=== PATIENT | female | born 1985 | race Caucasian/White ===

== ENCOUNTER → 2018-09-18 | Outpatient (CLI) | payer OTHER ==
[~2018-09-18] MED LIST: ACYC200CA PO; B12-1CHW PO; IRON18TA PO; MAPA500T2 PO; PREN1TAB18 PO; TUMS500C PO; ZOFR4TAB16 PO; ZOVI5OIN8 TOP
== END ==
LOC: M SMT 14:12
PROVIDERS: ATTEND Specialist
DX: O36.0130 Maternal care for anti-D [Rh] antibodies, third trimester, not applicable or unspecified (principal)

== ENCOUNTER → 2018-10-10 | Outpatient (CLI) | payer OTHER ==
--- NOTE | 2018-10-10 15:00 | REP ---
OB ULTRASOUND: Real-time sonographic evaluation of the gravid uterus is performed. There is a single living intrauterine gestation. The estimated gestational age is 31 weeks 3 days, EDC 12/09/2018. Today's measurements indicate appropriate growth. BPD 82 mm = 33 weeks 0 days, at the 74th percentile. HC 290 mm = 32 weeks 0 days, at the 58th percentile. AC 263 mm = 30 weeks 3 days, at the 36th percentile. Femur length 59 mm = 30 weeks 6 days, at the 43rd percentile. HC/AC ratio 1.10 within normal range. Estimated weight 1669 grams, 34th percentile. Cervix is closed measures 3.9 cm in length. heart rate 153 beats per minute. Amniotic fluid within normal limits. NAEL 13.9 within normal range of 8.7 to 24.0. SD ratio 2.58 and RI 0.61 within normal range. SEEN/GROSSLY UNREMARKABLE Lateral ventricles Yes Posterior fossa Yes Upper lip Yes Four-chamber heart Yes LVOT Yes RVOT Yes Stomach Yes Cord insertion Yes Three vessel cord Yes Kidneys Yes Bladder Yes Spine No position: Vertex. Placenta: Anterior and grade 1 with no previa or abruption. Electronically Signed by Jose Juan Begum MD 10/10/2018 08:11 P
== END ==
LOC: M RAD 09:48
PROVIDERS: ATTEND Specialist
DX: O36.5993 Maternal care for other known or suspected poor fetal growth, unspecified trimester, fetus 3 (principal); Z3A.31 31 weeks gestation of pregnancy

== ENCOUNTER → 2018-10-15 | Outpatient (CLI) | payer OTHER | LOC: M LAB 12:53 | PROVIDERS: ATTEND Specialist | DX: Z36.89 Encounter for other specified antenatal screening (principal) | CPT/HCPCS: 36415; 86850; 86900; 86901; J2790 ==

== ENCOUNTER → 2018-10-19 | Outpatient (CLI) | payer OTHER ==
[2018-10-19 18:07] LABS: HEMATOCRIT 32.5 % (36.0-47.0); HEMOGLOBIN 9.6 g/dl (12.0-15.5); MEAN CORPUSCULAR HEMOGLOBIN 21.1 pg (27.0-33.0); MEAN CORPUSCULAR HGB CONC 29.5 g/dl (32.0-36.5); MEAN CORPUSCULAR VOLUME 71.3 fl (80.0-96.0); PLATELET COUNT, AUTOMATED 371 10^3/uL (150-450); RED BLOOD COUNT 4.56 10^6/uL (4.00-5.40); WHITE BLOOD COUNT 10.6 10^3/uL (4.0-10.0)
[2018-10-19 18:25] LABS: HEMOGLOBIN A1c 4.7 %
== END ==
LOC: M SMT 15:12
PROVIDERS: ATTEND Specialist
DX: O36.0130 Maternal care for anti-D [Rh] antibodies, third trimester, not applicable or unspecified (principal); Z3A.31 31 weeks gestation of pregnancy

== ENCOUNTER 2018-10-28 08:00 | Outpatient (CLI) | payer OTHER ==
[~2018-10-28] VITALS: Ht 167.6 cm; Wt 90.0 kg
[2018-10-28 08:20] VITALS: BP 120/70
--- NOTE | 2018-10-28 08:58 | NUR ---
L&D Triage Note S: 33yo @ 34w0d presents with c/o LOF that occurred late last night. Reports soaking through two pads. Has irregular contraction. Reports active movement. O: vss, AF cat 1 feal tracing with infrequent contractions gen: well appearing abd: soft, gravid, nttp cx: /-3 SS: neg nitrazine, neg ferning and pooling. TAUS: ceph, NAEL 16cm A/P: 33yo - neg workup for PPROM reassuring status -h/o 4 prior PTD, GBS collected -IHCP - stable Plan to start course of betamethasone 2nd to IHCP and h/o PTDs. Will discharge home after completing with PTL precautions and [facility] instructions. Alejandra Yin MD
[2018-10-28] MEDS ORDERED: BETAMETHASONE SOLUSPAN 6MG/ML INJ 5ML (J0702) IM SCH (09:00)
[2018-10-28] MEDS ORDERED: URSO300C3 PO (09:04)
[2018-10-28] MEDS ORDERED: RANI15TA PO (09:04)
== END 2018-10-28 10:09 | disposition home or self-care (01) ==
LOC: M LDO 08:00
PROVIDERS: ATTEND Obstetrics & Gynecology
DX: O47.03 False labor before 37 completed weeks of gestation, third trimester (principal); Z3A.34 34 weeks gestation of pregnancy
CPT/HCPCS: 59025; 76815; 87081; 96372; J0702

== ENCOUNTER 2018-10-29 08:26 | Outpatient (CLI) | payer OTHER ==
[~2018-10-29] VITALS: Ht 167.6 cm; Wt 89.3 kg
[~2018-10-29 08:26] MED LIST changes: +RANI15TA PO; +URSO300C3 PO
[2018-10-29 08:51] VITALS: BP 130/79
[2018-10-29] MEDS ORDERED: BETAMETHASONE SOLUSPAN 6MG/ML INJ 5ML (J0702) IM ONE (10:00)
--- NOTE | 2018-10-29 15:19 | IPNPDOC ---
Text Note Date of Service The patient was seen on 10/29/18. NOTE Patient is a 33-year-old female who is a who presents for her second dose of betamethasone injection. She is 34.1 weeks gestation with a history of A1GDM, intrahepatic cholestasis, anti-D antibody, and a history of gastric bypass with a history of an anastomosis leak during her last . She is receiving betamethasone because she will be induced at 36-37 weeks for cholest asis. NST is a Category I FHR. Patient discharged to home. VS,Fishbone, I+O VS, Fishbone, I+O Vital Signs Date Time Temp Pulse Resp B/P (MAP) Pulse Ox O2 Delivery O2 Flow Rate FiO2 10/29/18 08:51 99.0 108 18 130/79 (96) DOMINIC SALGADO CNM Oct 29, 2018 15:19
== END 2018-10-29 09:49 ==
LOC: M LDO 08:26
PROVIDERS: ATTEND Advanced Practice Midwife
DX: Z34.83 Encounter for supervision of other normal pregnancy, third trimester (principal)
CPT/HCPCS: 96372; J0702

== ENCOUNTER 2018-11-04 12:16 | Inpatient (IN) | payer OTHER ==
[~2018-11-04] VITALS: Ht 167.6 cm; Wt 90.0 kg
[2018-11-04 12:23] VITALS: BP 122/69
[2018-11-04] MEDS: ACETAMINOPHEN 500 MG TAB PO PRN (13:12)
--- NOTE | 2018-11-04 14:08 | HPE ---
DATE OF ADMISSION: 11/04/2018 A 33-year-old 8, para 1-4-2-5 female at 35-0/7 weeks gestation by 28-week ultrasound, estimated date of confinement (EDC) 12/09/2018, presents to triage after being transferred from [facility] with contractions every 3-4 minutes starting at midnight on the day of admission. Contractions were intense. She did not feel she would have time to drive herself down to [place]. She denies vaginal bleeding. There is good movement. At [facility], she was found to be 3-4 cm dilated, which is a change from her prior exam and the decision was made to transfer her to [place]. OBSTETRICAL HISTORY: 1. 2002: 34 weeks, vaginal delivery, 6 pound 9 ounce female . 2. 2003: 35 weeks, vaginal delivery, 7 pound 1 ounce female infant. 3. 2005: 33 weeks, vaginal delivery, 3 pound 5 ounce male infant. 4. 2007: 36 weeks, vaginal delivery, 7 pound 4 ounce female infant. 5. 2008: Termination of . 6. 2011: Termination of . 7. 2015: 38 weeks, vaginal delivery, 7 pound 12 ounce female . MEDICAL HISTORY: 1. Prolonged QT syndrome. 2. Anemia. 3. Anxiety. SURGICAL HISTORY: 1. Gastric bypass 2002. 2. Termination of times two. ALLERGIES: 1. REGLAN, which causes anxiety. 2. NONSTEROIDAL ANTI-INFLAMMATORY DRUGS (NSAIDS). SOCIAL HISTORY: The patient lives in [place]. She denies cigarettes, alcohol, or drug use. FAMILY HISTORY: Noncontributory. COURSE: Patient initiated care at approximately 28 weeks gestation on 09/12/2018. Her blood pressure was 120/74, weight 199. Patient has a history of gastric bypass. Patient complained of itching on her hands and on her feet and was subsequently diagnosed with cholestasis of . She was started on Ursodiol 500 mg twice a day. Patient was diagnosed with gestational diabetes, controlled by diet. Gestational diabetes with all her pregnancies. She was seen for contractions and administered steroids on 10/28/2018. PHYSICAL EXAMINATION: Blood pressure 124/74, pulse 84. She appears uncomfortable. Head and neck exam: Normal. Lungs: Clear. Heart: Regular rate and rhythm. Abdomen: Nontender, gravid. heart tones: Category 1. Contractions: Every 2-3 minutes, palpate is moderate. Sterile vagina Exam: 3-4 cm, 70%, -2, posterior, vertex. Extremities: Nontender. LABS: Blood type O negative, rubella immune, RPR nonreactive, hepatitis B and C negative, HIV negative, GBS negative 10/28/2018. ASSESSMENT: A 33-year-old 8, para 5 female at 35-0/7 weeks gestation, presents with contractions. PLAN: Patient will be admitted for observation on 11/04/2018. Plan IV fluids and will recheck cervix and see if she is making any further change. Do not plan tocolysis at this point in time since the patient has completed steroids.
[2018-11-05 09:52] VITALS: BP 113/76
--- NOTE | 2018-11-05 12:22 | IPNPDOC ---
Text Note Date of Service The patient was seen on 11/05/18. NOTE Subjective: Patient reports she feels pressure. Objective: No change in cervical exam per Dr. Jeong. VS: see below. FHR: 125, moderate variability, positive accelerations, no decelerations. Contractions: none noted. Assessment: IUP at 35.1 weeks gestation; cholestasis, Category I FHR tracing. Plan: Dr. Jeong in to discuss plan of care. Reviewed given patient is 4 cm and her history of labor along with the distance she is away from the hospital we recommend she stay at the hospital until she delivers or until 36 weeks when she will be induced for cholestasis. Patient and agree with plan. She will continue with monitoring once daily and she is to report any changes. Patient will be moved to for care. VS,Fishbone, I+O VS, Fishbone, I+O Vital Signs Date Time Temp Pulse Resp B/P (MAP) Pulse Ox O2 Delivery O2 Flow Rate FiO2 11/05/18 09:52 96.7 122 18 113/76 (88) DOMINIC SALGADO CNM Nov 05, 2018 12:22
[2018-11-05 15:22] VITALS: BP 117/67
[2018-11-05 18:00] VITALS: BP 125/76
[2018-11-06 05:37] VITALS: BP 110/61
[2018-11-06] MEDS: PRENATAL VITAMINS CHEWABLE TABLET PO SCH (08:35)
[2018-11-06] MEDS ORDERED: ADACEL/BOOSTRIX VACCINE (DIPHTH/PERTUSS/ACELL/TETANUS)0.5ML SYR (90715) IM ONE (10:15)
--- NOTE | 2018-11-06 11:01 | NUR ---
HD#3 S: Doing well. Reports increase pelvic pressure with occasional contractions. Reports active movement. No vaginal bleeding or LOF. O: vss,af gen: well appearing abd: gravid, nttp cx: deferred A/P: 33yo with advance dilation- currently stable with no s/s of labor progression -expectant management and BID NST -IHCP - stable. has completed betamethasone and plan to proceed with delivery at 36weeks. Alejandra Yin MD
[2018-11-06 18:00] VITALS: BP 134/66
[2018-11-07 06:37] VITALS: BP 109/56
[2018-11-07] MEDS ORDERED: HYDROCORTISONE 1% CREAM 30 GM TOP ONE (08:00)
--- NOTE | 2018-11-07 08:00 | NUR ---
Progress note S: c/o pressure, some contractions O: TX=100/56 Afebrile NAD Abd: NT, gravid FHT: Cat. I SVE: 4 cm/70%/-2 posterior vtx A/P 33 yo at 35 3/7 weeks, cholestasis, contractions Continue in hospital bedrest Ursodiol 600 mg BID No plan to stop labor BMZ complete Fabian Jeong MD
[2018-11-07] MEDS: PRENATAL VITAMINS CHEWABLE TABLET PO SCH (11:03)
[2018-11-07] MEDS: URSODIOL 300 MG CAP PO SCH ×2 (11:03→21:37)
[2018-11-07 18:00] VITALS: BP 119/71
[2018-11-07 22:05] VITALS: BP 120/58
[2018-11-08 06:41] VITALS: BP 100/52
[2018-11-08] MEDS: PRENATAL VITAMINS CHEWABLE TABLET PO SCH (09:06)
[2018-11-08] MEDS: ACETAMINOPHEN 500 MG TAB PO PRN (09:07)
[2018-11-08] MEDS: URSODIOL 300 MG CAP PO SCH ×2 (09:09→20:04)
[2018-11-08 14:00] VITALS: BP 119/70
[2018-11-08 18:08] VITALS: BP 119/75
[2018-11-08] MEDS ORDERED: HYDROCORTISONE 1% CREAM 30 GM TOP ONE (21:00)
[2018-11-08 22:00] VITALS: BP 107/56
[2018-11-09 06:00] VITALS: BP 103/63
--- NOTE | 2018-11-09 07:34 | NUR ---
Progress note S: No contractions, feels pressure O: NO=719/63 AF NAD Abd: NT, gravid FHT: cat. I toco: irregular A/P 33 yo at 35 5/7 weeks with advanced dilation, cholestasis of Plan induction on 11/11 at 36 0/7 weeks gestation with indication of cholestasis of Continue in hospital bedrest On Ursodiol 500 mg BID Fabian Jeong MD
[2018-11-09] MEDS: PRENATAL VITAMINS CHEWABLE TABLET PO SCH (09:48)
[2018-11-09] MEDS: URSODIOL 300 MG CAP PO SCH ×2 (09:49→21:24)
[2018-11-09 18:00] VITALS: BP 115/71
[2018-11-09 22:01] VITALS: BP 127/83
[2018-11-10 05:30] VITALS: BP 101/56
--- NOTE | 2018-11-10 07:03 | IPNPDOC ---
Text Note Date of Service The patient was seen on 11/10/18. NOTE Progress Sleeping, no UC VSS, afebrile normotensive Cat I tracing Comfortable Cholestasis @ 35 / Continue ursodial BID dosing. Consider IOL @ 36 wks for cholestasis of VS,Fishbone, I+O VS, Fishbone, I+O Vital Signs Date Time Temp Pulse Resp B/P (MAP) Pulse Ox O2 Delivery O2 Flow Rate FiO2 11/10/18 05:30 98.0 86 18 101/56 (71) 11/09/18 06:00 97 Joleen Mondragon CNM Nov 10, 2018 07:03
[2018-11-10] MEDS: URSODIOL 300 MG CAP PO SCH ×2 (09:34→21:18)
[2018-11-10] MEDS: PRENATAL VITAMINS CHEWABLE TABLET PO SCH (09:35)
[2018-11-10 14:00] VITALS: BP 119/64
[2018-11-10 22:12] VITALS: BP 122/62
[2018-11-11] VITALS (51 sets, daily range): BP systolic 84–131; BP diastolic 47–71
[2018-11-11 06:31] LABS: HEMATOCRIT 30.8 % (36.0-47.0); HEMOGLOBIN 8.8 g/dl (12.0-15.5); MEAN CORPUSCULAR HEMOGLOBIN 20.7 pg (27.0-33.0); MEAN CORPUSCULAR HGB CONC 28.6 g/dl (32.0-36.5); MEAN CORPUSCULAR VOLUME 72.3 fl (80.0-96.0); PLATELET COUNT, AUTOMATED 313 10^3/uL (150-450); RED BLOOD COUNT 4.26 10^6/uL (4.00-5.40); WHITE BLOOD COUNT 8.1 10^3/uL (4.0-10.0)
[2018-11-11] MEDS ORDERED: LR 1,000 ML IV SCH (07:26)
[2018-11-11] MEDS ORDERED: OXYTOCIN DRIP 30 UNITS in APPROPRIATE DILUENT 1 EA IV SCH (07:30)
--- NOTE | 2018-11-11 08:02 | NUR ---
Progress note S: c/o pelvic pressure, c/o general itching O: AI=284/65 P=84 AF NAD Abd: NT, gravid FHT: Cat. I SVE: 4 cm/70%/-1 vtx, soft toco: none A/P 33 yo at 36 0/7 weeks, hospital day#7, induction today for cholestasis Start with Oxytocin Labs drawn this morning GBS negative, no antibiotics needed. Fabian Jeong MD
[2018-11-11] MEDS: PRENATAL VITAMINS CHEWABLE TABLET PO SCH (08:54)
[2018-11-11] MEDS: URSODIOL 300 MG CAP PO SCH (08:54)
[2018-11-11] MEDS ORDERED: FENTANYL 2MCG/ML ROPIVACAINE 0.2% IN 0.9% NACL 100ML IVBAG As Ordered ONE (09:42)
[2018-11-11] MEDS ORDERED: LR 800 ML IV ONE (09:45)
[2018-11-11] MEDS ORDERED: FENTANYL/ROPIVACAINE/NACL BAG 100 ML EPIDURAL SCH (11:30)
[2018-11-11] MEDS ORDERED: ONDANSETRON 4MG/2ML VIAL (J2405) IV PRN ×2 (11:30→15:00)
[2018-11-11] MEDS ORDERED: REFRIGERATOR IV KEYS XX PRN (11:30)
[2018-11-11] MEDS ORDERED: LACTATED RINGER'S 1000 ML IV PRN (11:30)
[2018-11-11] MEDS ORDERED: EPIDURAL/PCA KEYS XX PRN (11:30)
[2018-11-11] MEDS ORDERED: diphenhydrAMINE INJ 50MG/ML VIAL (J1200) IV PRN (11:30)
[2018-11-11] MEDS ORDERED: EPIDURAL COMMENT XX SCH (11:30)
[2018-11-11] MEDS ORDERED: NALOXONE INJ 0.4 MG/1 ML VIAL (J2310) IV PRN (11:30)
[2018-11-11] MEDS: ePHEDrine SULFATE 25 MG/5 ML(5MG/ML) SYRINGE IV PRN ×3 (11:47→11:55)
[2018-11-11] MEDS ORDERED: RHOGAM 300 MCG (1500 IU) INJ (J2790) IM SCH (15:00)
[2018-11-11] MEDS ORDERED: DOCUSATE SODIUM 100 MG CAP PO PRN (15:00)
[2018-11-11] MEDS ORDERED: DIBUCAINE 1% OINTMENT 30GM TOP PRN (15:00)
[2018-11-11] MEDS ORDERED: MEASLES,MUMPS,RUBELLA VACCINE INJ (MMR-II) (90707) SC SCH (15:00)
[2018-11-11] MEDS ORDERED: OXYTOCIN DRIP 30 UNITS in APPROPRIATE DILUENT 1 EA IV ONE (15:00)
[2018-11-11] MEDS ORDERED: METHYLERGONOVINE MALEATE 0.2 MG TAB PO PRN (15:00)
[2018-11-11] MEDS: ACETAMINOPHEN 500 MG TAB PO PRN ×2 (17:39→23:32)
[2018-11-12] MEDS: ACETAMINOPHEN 500 MG TAB PO PRN ×2 (05:32→13:50)
[2018-11-12 06:00] VITALS: BP 117/61
[2018-11-12] MEDS: PRENATAL VITAMINS CHEWABLE TABLET PO SCH (08:27)
--- NOTE | 2018-11-12 10:07 | DN ---
DATE: 11/11/2018 PREDELIVERY DIAGNOSIS: 36 0/7 weeks gestation: Advanced cervical dilation POST-DELIVERY DIAGNOSIS: Delivered. PROCEDURE: Spontaneous vaginal delivery. CAP SEWER: Dr. Fabian Jeong. ANESTHESIA: Epidural. ESTIMATED BLOOD LOSS: 300 mL. FINDINGS: 5 pound 9 ounce female infant, scores 8 and 9. DELIVERY SUMMARY: After a short second phase consisting of 1 contraction the patient had spontaneously delivery of a 5 pound 9 ounce female infant. 8 and 9 under epidural anesthesia. The cried immediately and was handed to the mother. The cord was doubly clamped and cut. Placenta delivered spontaneously and appeared to be intact. The patient received intravenous (IV) Pitocin after delivery of the placenta. There are no vaginal lacerations present. Sponge counts were correct.
[2018-11-12] MEDS: KETOROLAC 30 MG/ML VIAL (J1885) IV SCH ×2 (11:18→20:10)
[2018-11-12 18:00] VITALS: BP 113/68
[2018-11-13] MEDS: KETOROLAC 30 MG/ML VIAL (J1885) IV SCH (04:58)
[2018-11-13 05:42] VITALS: BP 112/69
[2018-11-13] MEDS: PRENATAL VITAMINS CHEWABLE TABLET PO SCH (08:32)
== END 2018-11-13 11:45 | disposition home or self-care (01) | DRG 560 ==
LOC: M LDI 12:16 → OBSVTOIN 11-05 10:53 → M OBS 11-05 15:11 → M LDI 11-11 05:55 → M OBS 11-11 17:06
PROVIDERS: ADMIT Specialist; ATTEND Specialist
PROC: 10E0XZZ Delivery of Products of Conception, External Approach (ICD-10-PCS; principal; 2018-11-11)
DX: O60.14X0 Preterm labor third trimester with preterm delivery third trimester, not applicable or unspecified (principal); K83.1 Obstruction of bile duct; O24.420 Gestational diabetes mellitus in childbirth, diet controlled; O26.62 Liver and biliary tract disorders in childbirth; Z3A.35 35 weeks gestation of pregnancy; O99.844 Bariatric surgery status complicating childbirth; Z37.0 Single live birth

== ENCOUNTER 2019-04-02 06:05 | Day surgery (SDC) | payer OTHER ==
[~2019-04-02] VITALS: Ht 167.6 cm; Wt 81.6 kg
[~2019-04-02 06:05] MED LIST changes: +ACYC1CAP20 PO; -ACYC200CA PO; +LR 1,000 ML IV ONE; +TRI-TAB16 PO
[2019-04-02] MEDS ORDERED: BUPIVACAINE HCL 0.25% 30 ML VIAL As Ordered ONE (06:33)
[2019-04-02 06:39] LABS: HEMATOCRIT 34.1 % (36.0-47.0); HEMOGLOBIN 9.8 g/dl (12.0-15.5); MEAN CORPUSCULAR HEMOGLOBIN 20.2 pg (27.0-33.0); MEAN CORPUSCULAR HGB CONC 28.7 g/dl (32.0-36.5); MEAN CORPUSCULAR VOLUME 70.3 fl (80.0-96.0); PLATELET COUNT, AUTOMATED 445 10^3/uL (150-450); RED BLOOD COUNT 4.85 10^6/uL (4.00-5.40)
[2019-04-02] MEDS ORDERED: ONDANSETRON 4MG/2ML VIAL (J2405) As Ordered ONE (07:02)
[2019-04-02] MEDS ORDERED: PROPOFOL 200 MG/20 ML VIAL As Ordered ONE (07:02)
[2019-04-02] MEDS ORDERED: LIDOCAINE 2% INJ 100 MG/5 ML SDV (FOR ANES.) As Ordered ONE (07:02)
[2019-04-02] MEDS ORDERED: ROCURONIUM BROMIDE 50 MG/5 ML VIAL As Ordered ONE (07:02)
[2019-04-02] MEDS ORDERED: dexameTHASONE 4 MG/ML 1ML VIAL (J1100) As Ordered ONE (07:02)
[2019-04-02] MEDS ORDERED: KETOROLAC 60 MG/2 ML VIAL (J1885) As Ordered ONE (07:02)
[2019-04-02] MEDS ORDERED: fentaNYL 250 MCG/5 ML INJECTION (J3010) As Ordered ONE (07:04)
[2019-04-02] MEDS ORDERED: MIDAZOLAM INJ 2 MG/2 ML VIAL (J2250) As Ordered ONE (07:05)
[2019-04-02 07:07] LABS: URINE PREG TEST NEGATIVE (NEGATIVE)
[2019-04-02] MEDS ORDERED: SCOPOLAMINE 1MG TRANSDERMAL PATCH As Ordered ONE (07:23)
[2019-04-02] MEDS ORDERED: SCOPOLAMINE 1MG TRANSDERMAL PATCH TOP ONE (07:45)
[2019-04-02] MEDS ORDERED: ACETAMINOPHEN 1000MG 100ML IV BTL (OFIRMEV) (J0131 PER 10MG) As Ordered ONE (08:00)
[2019-04-02] MEDS ORDERED: SUGAMMADEX SODIUM 500 MG/5 ML VIAL (BRIDION) As Ordered ONE (08:09)
[2019-04-02] MEDS ORDERED: PERCOCET 5MG/325MG TAB PO PRN (08:45)
[2019-04-02] MEDS ORDERED: ONDANSETRON 4MG/2ML VIAL (J2405) IV PRN (08:45)
[2019-04-02] MEDS ORDERED: LR 1,000 ML IV SCH ×2 (08:45→09:46)
[2019-04-02] MEDS: MEPERIDINE INJ 25 MG/ML VIAL (J2175) IV PRN ×2 (09:00→09:05)
[2019-04-02] MEDS: fentaNYL 100 MCG/2 ML INJECTION (J3010) IV PRN ×2 (09:00→09:05)
[2019-04-02] MEDS ORDERED: OXYC1TAB23 PO (09:41)
[2019-04-02] MEDS ORDERED: oxyCODONE 5MG TAB PO PRN (09:46)
[2019-04-02 10:47] VITALS: BP 113/64
--- NOTE | 2019-04-16 23:56 | RO ---
DATE OF PROCEDURE: 04/02/2019 PREPROCEDURE DIAGNOSIS: Undesired fertility. POSTPROCEDURE DIAGNOSIS: Undesired fertility. PROCEDURE: Laparoscopic bilateral salpingectomy. SURGEON: Fabian Jeong MD SHANK FAKER: ANESTHESIA: General endotracheal. ESTIMATED BLOOD LOSS: Minimal. FINDINGS: Normal uterus, fallopian tube and ovaries. Upper abdomen with evidence of prior surgery, including gastric bypass surgery with adhesions to the anterior abdominal wall. The area around the umbilicus and lower half of the abdomen was completely free of adhesions. DESCRIPTION OF PROCEDURE: The patient was taken to the operating room where general endotracheal anesthesia was induced. She was prepped and draped in a sterile fashion in the dorsal lithotomy position. The bladder was emptied with a catheter. A Pigafe tenaculum was placed as a manipulator. A periumbilical incision was made with a scalpel. A Veress needle was placed through this incision while tenting up on the skin of the abdomen. Intraabdominal location of the Veress needle was assessed by use of a saline-filled syringe. A pneumoperitoneum was created. The Veress needle was removed. 5 mm trocar using Visiport was inserted through this incision, 5 and 8 mm suprapubic ports were placed under direct visualization. Attention was turned to the fallopian tubes. The fimbriated end of the tubes were grasped with a grasping instrument, a LigaSure device used to coagulate and incise broad ligament attachments to the tubes. The tubes were then excised near their origin. Both tubes were removed through the suprapubic ports. The pneumoperitoneum was released. All instruments were removed. Sponge, instrument and needle counts were correct. The patient went to the recovery room in stable condition.
== END 2019-04-02 10:59 | disposition home or self-care (01) ==
LOC: M SDC 06:05
PROVIDERS: ATTEND Specialist
DX: Z30.2 Encounter for sterilization (principal); K21.9 Gastro-esophageal reflux disease without esophagitis; F31.9 Bipolar disorder, unspecified; F32.9 Major depressive disorder, single episode, unspecified; E66.9 Obesity, unspecified; R94.31 Abnormal electrocardiogram [ECG] [EKG]; Z88.8 Allergy status to other drugs, medicaments and biological substances; Z91.013 Allergy to seafood; Z79.3 Long term (current) use of hormonal contraceptives; Z98.84 Bariatric surgery status
CPT/HCPCS: 36415; 58661; 84703; 85027; 88302; J0131; J1100; J2175; J2250; J2405; J3010

== ENCOUNTER → 2022-02-16 | Outpatient (CLI) | payer MEDICAID ==
[~2022-02-16] MED LIST changes: -LR 1,000 ML IV ONE; +OXYC1TAB23 PO
[2022-02-16 15:33] LABS: APPEARANCE, URINE CLOUDY (CLEAR); BACTERIA, URINE AUTO NEGATIVE (NEGATIVE); BILIRUBIN, URINE AUTO NEGATIVE (NEGATIVE); BLOOD, URINE BLOOD NEGATIVE (NEGATIVE); COLOR, URINE YELLOW (YELLOW); GLUCOSE, URINE (UA) AUTO NEGATIVE (NEGATIVE); KETONE, URINE AUTO NEGATIVE (NEGATIVE); LEUKOCYTE ESTERASE, URINE AUTO 3+ (NEGATIVE); MUCUS, URINE SMALL (NEGATIVE); NITRITE, URINE AUTO NEGATIVE (NEGATIVE); PROTEIN, URINE AUTO NEGATIVE (NEGATIVE); RBC, URINE AUTO 1 /HPF (0-3); SPECIFIC GRAVITY URINE AUTO 1.014 (1.002-1.035); SQUAMOUS EPITHELIAL CELL UR AU 23 /HPF (0-6); UROBILINOGEN, URINE AUTO 0.2 mg/dL (0.0-2.0); WBC, URINE AUTO 4 /HPF (0-3)
[2022-02-16 15:48] LABS: BASO % 0.3 % (0.0-1.0); EOS # 0.1 10^3/uL (0.0-0.5); EOS % 1.6 % (0.0-3.0); HEMATOCRIT 36.1 % (36.0-47.0); HEMOGLOBIN 10.4 g/dl (12.0-15.5); LYMPH # 1.5 10^3/uL (1.5-5.0); LYMPH % 26.6 % (24.0-44.0); MEAN CORPUSCULAR HEMOGLOBIN 20.9 pg (27.0-33.0); MEAN CORPUSCULAR HGB CONC 28.8 g/dl (32.0-36.5); MEAN CORPUSCULAR VOLUME 72.6 fl (80.0-96.0); MONO # 0.7 10^3/uL (0.0-0.8); MONO % 11.3 % (2.0-8.0); NEUTROPHILS # 3.5 10^3/uL (1.5-8.5); PLATELET COUNT, AUTOMATED 379 10^3/uL (150-450); RED BLOOD COUNT 4.97 10^6/uL (4.00-5.40); WHITE BLOOD COUNT 5.8 10^3/uL (4.0-10.0)
[2022-02-16 15:58] LABS: ALBUMIN 3.9 GM/DL (3.2-5.2); BLOOD UREA NITROGEN 9 MG/DL (7-18); CALCIUM LEVEL 9.2 MG/DL (8.5-10.1); CARBON DIOXIDE LEVEL 25 MEQ/L (21-32); CHLORIDE LEVEL 108 MEQ/L (98-107); CREATININE FOR GFR 0.76 MG/DL (0.55-1.30); FERRITIN < 3 NG/ML (8-252); FREE THYROXINE INDEX 1.6 % (1.3-4.8); GLOMERULAR FILTRATION RATE > 60.0 (>60); GLUCOSE, FASTING 89 MG/DL (70-100); IRON (FE) 20 UG/DL (50-170); PERCENT SATURATION 3.4 % (13.2-45.0); PHOSPHORUS LEVEL 3.2 MG/DL (2.5-4.9); POTASSIUM SERUM 4.2 MEQ/L (3.5-5.1); SODIUM LEVEL 142 MEQ/L (136-145); T UPTAKE 33 % (30-39); THYROXINE (T4) 4.8 UG/DL (4.5-12.0); TOTAL IRON BINDING CAPACITY 581 UG/DL (250-450)
[2022-02-16 16:07] LABS: FOLATE 14.1 NG/ML; VITAMIN B12 LEVEL 454 PG/ML
[2022-02-16 16:16] LABS: HEPATITIS B SURFACE ANTIGEN NEGATIVE (NEGATIVE)
[2022-02-16 16:42] LABS: HEPATITIS C VIRUS ABY INDEX 0.2 INDEX (<0.8)
[2022-02-16 16:44] LABS: HEPATITIS B CORE ANTIBODY IGM NEGATIVE (NEGATIVE)
== END ==
LOC: M PLALAB 13:22
PROVIDERS: ATTEND Physician Assistant
DX: Z02.2 Encounter for examination for admission to residential institution (principal); R53.83 Other fatigue; Z98.84 Bariatric surgery status

== ENCOUNTER → 2022-02-18 | Outpatient (CLI) | payer MEDICAID ==
[2022-02-18 13:43] LABS: HEMATOCRIT 35.6 % (36.0-47.0); HEMOGLOBIN 10.3 g/dl (12.0-15.5); MEAN CORPUSCULAR HEMOGLOBIN 20.9 pg (27.0-33.0); MEAN CORPUSCULAR HGB CONC 28.9 g/dl (32.0-36.5); MEAN CORPUSCULAR VOLUME 72.1 fl (80.0-96.0); PLATELET COUNT, AUTOMATED 337 10^3/uL (150-450); RED BLOOD COUNT 4.94 10^6/uL (4.00-5.40); WHITE BLOOD COUNT 8.1 10^3/uL (4.0-10.0)
[2022-02-18 13:45] LABS: ALBUMIN 3.8 GM/DL (3.2-5.2); ALT/SGPT 30 U/L (12-78); BILIRUBIN,TOTAL 0.4 MG/DL (0.2-1.0); BLOOD UREA NITROGEN 12 MG/DL (7-18); CALCIUM LEVEL 8.1 MG/DL (8.5-10.1); CARBON DIOXIDE LEVEL 28 MEQ/L (21-32); CHLORIDE LEVEL 104 MEQ/L (98-107); CREATININE FOR GFR 0.75 MG/DL (0.55-1.30); GLOMERULAR FILTRATION RATE > 60.0 (>60); GLUCOSE, FASTING 74 MG/DL (70-100); POTASSIUM SERUM 4.5 MEQ/L (3.5-5.1); SODIUM LEVEL 135 MEQ/L (136-145); TOTAL PROTEIN 7.7 GM/DL (6.4-8.2)
[2022-02-18 14:08] LABS: HEPATITIS B SURFACE ANTIGEN NEGATIVE (NEGATIVE)
[2022-02-18 14:37] LABS: HEPATITIS C VIRUS ABY INDEX 0.2 INDEX (<0.8); HIV 1&2 SCREEN CENTAUR NEGATIVE (NEGATIVE)
[2022-02-18 15:04] LABS: GC DNA AMPLIFICATION NEGATIVE (NEGATIVE)
[2022-02-20 00:43] LABS: HCG, SERUM QUALITATIVE QNS (NEGATIVE)
[2022-02-21 11:43] LABS: HCG, SERUM QUALITATIVE NEGATIVE (NEGATIVE)
== END ==
LOC: M PLALAB 09:12
PROVIDERS: ATTEND Family Medicine
DX: F11.20 Opioid dependence, uncomplicated (principal)

== ENCOUNTER 2022-02-25 11:50 | Outpatient (CLI) | payer MEDICAID ==
[~2022-02-25] VITALS: Ht 165.1 cm; Wt 94.5 kg
[~2022-02-25 11:50] MED LIST changes: +ALBUTEROL SULFATE 2.5 MG/0.5 ML INH NEB SOLN INH PRN; +EPINEPHrine INJ 1 MG/ML 1ML AMP IM PRN; +diphenhydrAMINE 50MG/ML VIAL (J1200) IV PRN; +methylPREDNISolone 125MG 2ML VIAL IV PRN
[2022-02-25] MEDS ORDERED: FERRIC CARBOXYMALTOSE INJ 750 MG in NS 250 ML (>50kg) IV ONE ×3 (12:00)
[2022-02-25 14:29] VITALS: BP 141/82
== END 2022-02-25 14:30 | disposition home or self-care (01) ==
LOC: M INFU 11:50
PROVIDERS: ATTEND Internal Medicine Cardiovascular Disease
DX: D50.9 Iron deficiency anemia, unspecified (principal); Z88.8 Allergy status to other drugs, medicaments and biological substances; Z91.89 Other specified personal risk factors, not elsewhere classified
CPT/HCPCS: 96365; 96366; J1439

== ENCOUNTER 2022-04-05 11:15 | Outpatient (CLI) | payer MEDICAID, SELFPAY ==
[~2022-04-05] VITALS: Ht 165.1 cm; Wt 88.0 kg
[2022-04-05 11:21] VITALS: BP 121/56
[2022-04-05] MEDS ORDERED: ACETAMINOPHEN TAB 650MG DOSE (2X325MG) PO ONE (11:30)
[2022-04-05] MEDS ORDERED: methylPREDNISolone 40MG 1ML VIAL IV ONE (11:30)
[2022-04-05] MEDS ORDERED: NS 1,000 ML IV SCH (11:30)
[2022-04-05] MEDS ORDERED: FERRIC CARBOXYMALTOSE INJ 750 MG in NS 250 ML (>50kg) IV ONE ×3 (11:30)
[2022-04-05 12:50] VITALS: BP 123/73
== END 2022-04-05 12:50 | disposition home or self-care (01) ==
LOC: M INFU 11:15
PROVIDERS: ATTEND Internal Medicine Cardiovascular Disease
DX: D50.9 Iron deficiency anemia, unspecified (principal); Z88.8 Allergy status to other drugs, medicaments and biological substances
CPT/HCPCS: 96365; J1439

== ENCOUNTER 2022-04-12 12:00 | Outpatient (CLI) | payer MEDICAID ==
[~2022-04-12] VITALS: Ht 167.6 cm; Wt 88.0 kg
[~2022-04-12 12:00] MED LIST changes: +ACETAMINOPHEN TAB 650MG DOSE (2X325MG) PO ONE; +FERRIC CARBOXYMALTOSE INJ 750 MG in NS 250 ML (>50kg) IV ONE; +NS 1,000 ML IV SCH; +methylPREDNISolone 40MG 1ML VIAL IV ONE
[2022-04-12 12:35] VITALS: BP 96/55
[2022-04-12 13:57] VITALS: BP 108/55
== END 2022-04-12 14:00 | disposition home or self-care (01) ==
LOC: M INFU 12:00
PROVIDERS: ATTEND Internal Medicine Cardiovascular Disease
DX: D50.9 Iron deficiency anemia, unspecified (principal); Z88.8 Allergy status to other drugs, medicaments and biological substances
CPT/HCPCS: 96365; J1439

== ENCOUNTER → 2022-05-09 | Outpatient (CLI) | payer MEDICAID ==
[~2022-05-09] MED LIST changes: -ACETAMINOPHEN TAB 650MG DOSE (2X325MG) PO ONE; -ALBUTEROL SULFATE 2.5 MG/0.5 ML INH NEB SOLN INH PRN; -EPINEPHrine INJ 1 MG/ML 1ML AMP IM PRN; -FERRIC CARBOXYMALTOSE INJ 750 MG in NS 250 ML (>50kg) IV ONE; -NS 1,000 ML IV SCH; -diphenhydrAMINE 50MG/ML VIAL (J1200) IV PRN; -methylPREDNISolone 125MG 2ML VIAL IV PRN; -methylPREDNISolone 40MG 1ML VIAL IV ONE
[2022-05-09 17:48] LABS: BASO % 0.5 % (0.0-1.0); EOS # 0.1 10^3/uL (0.0-0.5); EOS % 1.2 % (0.0-3.0); HEMATOCRIT 45.7 % (36.0-47.0); HEMOGLOBIN 14.4 g/dl (12.0-15.5); LYMPH # 2.4 10^3/uL (1.5-5.0); LYMPH % 35.8 % (24.0-44.0); MEAN CORPUSCULAR HEMOGLOBIN 27.8 pg (27.0-33.0); MEAN CORPUSCULAR HGB CONC 31.5 g/dl (32.0-36.5); MEAN CORPUSCULAR VOLUME 88.2 fl (80.0-96.0); MONO # 0.5 10^3/uL (0.0-0.8); MONO % 7.1 % (2.0-8.0); NEUTROPHILS # 3.6 10^3/uL (1.5-8.5); NEUTROPHILS % 55.1 % (36.0-66.0); PLATELET COUNT, AUTOMATED 214 10^3/uL (150-450); RED BLOOD COUNT 5.18 10^6/uL (4.00-5.40); WHITE BLOOD COUNT 6.6 10^3/uL (4.0-10.0)
[2022-05-09 18:49] LABS: ALBUMIN 4.1 GM/DL (3.2-5.2); BLOOD UREA NITROGEN 8 MG/DL (7-18); CALCIUM LEVEL 8.8 MG/DL (8.5-10.1); CARBON DIOXIDE LEVEL 27 MEQ/L (21-32); CHLORIDE LEVEL 105 MEQ/L (98-107); CREATININE FOR GFR 0.66 MG/DL (0.55-1.30); FERRITIN 224 NG/ML (8-252); GLOMERULAR FILTRATION RATE > 60.0 (>60); GLUCOSE, FASTING 83 MG/DL (70-100); IRON (FE) 48 UG/DL (50-170); PHOSPHORUS LEVEL 1.2 MG/DL (2.5-4.9); POTASSIUM SERUM 4.4 MEQ/L (3.5-5.1); SODIUM LEVEL 136 MEQ/L (136-145); TOTAL IRON BINDING CAPACITY 321 UG/DL (250-450)
[2022-05-09 19:35] LABS: TOTAL 25(OH) VITAMIN D 35.7 NG/ML (30.0-100.0); VITAMIN B12 LEVEL 429 PG/ML
== END ==
LOC: M PLALAB 15:44
PROVIDERS: ATTEND Physician Assistant
DX: D50.9 Iron deficiency anemia, unspecified (principal); Z98.84 Bariatric surgery status; E55.9 Vitamin D deficiency, unspecified

== ENCOUNTER → 2022-05-26 | Outpatient (CLI) | payer MEDICAID ==
[2022-05-26 14:22] LABS: BASO % 0.5 % (0.0-1.0); EOS # 0.1 10^3/uL (0.0-0.5); EOS % 1.2 % (0.0-3.0); HEMATOCRIT 49.1 % (36.0-47.0); HEMOGLOBIN 15.5 g/dl (12.0-15.5); LYMPH # 1.9 10^3/uL (1.5-5.0); LYMPH % 25.6 % (24.0-44.0); MEAN CORPUSCULAR HEMOGLOBIN 28.8 pg (27.0-33.0); MEAN CORPUSCULAR HGB CONC 31.6 g/dl (32.0-36.5); MEAN CORPUSCULAR VOLUME 91.3 fl (80.0-96.0); MONO # 0.6 10^3/uL (0.0-0.8); MONO % 7.3 % (2.0-8.0); NEUTROPHILS # 4.9 10^3/uL (1.5-8.5); PLATELET COUNT, AUTOMATED 255 10^3/uL (150-450); RED BLOOD COUNT 5.38 10^6/uL (4.00-5.40); WHITE BLOOD COUNT 7.6 10^3/uL (4.0-10.0)
[2022-05-26 15:08] LABS: ALBUMIN 4.1 GM/DL (3.2-5.2); BLOOD UREA NITROGEN 9 MG/DL (7-18); CALCIUM LEVEL 8.7 MG/DL (8.5-10.1); CARBON DIOXIDE LEVEL 30 MEQ/L (21-32); CHLORIDE LEVEL 106 MEQ/L (98-107); CREATININE FOR GFR 0.74 MG/DL (0.55-1.30); FERRITIN 215 NG/ML (8-252); FREE T4 0.86 NG/DL (0.76-1.46); GLOMERULAR FILTRATION RATE > 60.0 (>60); GLUCOSE, FASTING 86 MG/DL (70-100); IRON (FE) 109 UG/DL (50-170); PERCENT SATURATION 32.1 % (13.2-45.0); PHOSPHORUS LEVEL 1.7 MG/DL (2.5-4.9); SODIUM LEVEL 141 MEQ/L (136-145); TOTAL IRON BINDING CAPACITY 340 UG/DL (250-450)
[2022-05-26 15:36] LABS: TOTAL 25(OH) VITAMIN D 37.8 NG/ML (30.0-100.0)
[2022-05-26 15:37] LABS: VITAMIN B12 LEVEL 417 PG/ML (247-911)
== END ==
LOC: M PLALAB 10:34
PROVIDERS: ATTEND Physician Assistant
DX: D50.9 Iron deficiency anemia, unspecified (principal); E55.9 Vitamin D deficiency, unspecified; Z98.84 Bariatric surgery status; R53.83 Other fatigue

== ENCOUNTER → 2022-06-03 | Outpatient (CLI) | payer MEDICAID ==
[2022-06-03 13:19] LABS: BASO % 0.2 % (0.0-1.0); EOS # 0.1 10^3/uL (0.0-0.5); EOS % 0.8 % (0.0-3.0); HEMOGLOBIN 15.3 g/dl (12.0-15.5); LYMPH # 1.7 10^3/uL (1.5-5.0); LYMPH % 19.8 % (24.0-44.0); MEAN CORPUSCULAR HEMOGLOBIN 28.8 pg (27.0-33.0); MEAN CORPUSCULAR HGB CONC 31.2 g/dl (32.0-36.5); MEAN CORPUSCULAR VOLUME 92.1 fl (80.0-96.0); MONO # 0.6 10^3/uL (0.0-0.8); MONO % 6.4 % (2.0-8.0); NEUTROPHILS # 6.2 10^3/uL (1.5-8.5); NEUTROPHILS % 72.5 % (36.0-66.0); PLATELET COUNT, AUTOMATED 251 10^3/uL (150-450); RED BLOOD COUNT 5.32 10^6/uL (4.00-5.40); WHITE BLOOD COUNT 8.6 10^3/uL (4.0-10.0)
[2022-06-03 14:45] LABS: ALBUMIN 4.1 GM/DL (3.2-5.2); BLOOD UREA NITROGEN 9 MG/DL (7-18); CALCIUM LEVEL 9.2 MG/DL (8.5-10.1); CARBON DIOXIDE LEVEL 28 MEQ/L (21-32); CHLORIDE LEVEL 105 MEQ/L (98-107); CREATININE FOR GFR 0.86 MG/DL (0.55-1.30); FERRITIN 210 NG/ML (8-252); GLOMERULAR FILTRATION RATE > 60.0 (>60); GLUCOSE, FASTING 89 MG/DL (70-100); IRON (FE) 87 UG/DL (50-170); PERCENT SATURATION 25.8 % (13.2-45.0); PHOSPHORUS LEVEL 1.7 MG/DL (2.5-4.9); POTASSIUM SERUM 4.7 MEQ/L (3.5-5.1); SODIUM LEVEL 137 MEQ/L (136-145); TOTAL IRON BINDING CAPACITY 337 UG/DL (250-450)
[2022-06-03 15:31] LABS: VITAMIN B12 LEVEL 451 PG/ML (247-911)
== END ==
LOC: M PLALAB 09:28
PROVIDERS: ATTEND Physician Assistant
DX: D50.9 Iron deficiency anemia, unspecified (principal); Z98.84 Bariatric surgery status